=== PATIENT | female | born 1975 | race Caucasian/White ===

== ENCOUNTER → 2019-01-12 | Outpatient (CLI) | payer BC ==
[~2019-01-12] MED LIST: CEFT2FRO2 IVPB; CIPR500T87 PO; HEPA1DIS11 IV; HYDR1TAB12 PO; HYDR25TA6 PO; ONDA4TAB10 PO; OXYC-302 PO; POTA473S4 PO; SEPTRA PO; SULF1TAB24 PO; UNK ANTIBIOTIC PO; [UNRECOGNIZED DRUG - REMARK]
== END | disposition home or self-care (01) ==
LOC: CFH 14:37
PROVIDERS: ATTEND Family Medicine
DX: Z12.31 Encounter for screening mammogram for malignant neoplasm of breast (principal)
CPT/HCPCS: 77067